=== PATIENT | female | born 1945 | race Caucasian/White ===

== ENCOUNTER 2023-03-21 12:05 | Emergency (ER) | payer MEDICARE, SELFPAY ==
[2023-03-21 12:16] VITALS: BP 107/74; PULSE 73; RESP 20; TEMP 36.8; O2SAT 97; BMI 29.5
[2023-03-21 12:44] VITALS: O2SAT 96
--- NOTE | 2023-03-21 13:06 | ED.GENADUL1 ---
HPI - General Adult General Chief complaint: Epistaxis Stated complaint: BLOODY NOSE WON'T STOP/SINUS HEADACHE Time Seen by Provider: 03/21/23 12:59 Source: patient Mode of arrival: walk-in Limitations: no limitations History of Present Illness HPI narrative: patient presents with sinus pressure and drainage with increased frequency of blowing her nose. She initially told us that she has been having intermittent nosebleeds that resolve quickly - they usually start after she has blown her nose. She said that the nosebleeds have been happening intermittently for months but that the sinus pressure began last week. She has not seen any local ENT physicians. Related Data Home Medications Medication Instructions Recorded Confirmed albuterol sulfate 90 mcg/actuation 1 inh inhalation Q4H PRN shortness 03/21/23 03/21/23 aerosol inhaler of breath or wheezing aspirin 81 mg tablet,delayed 81 mg PO DAILY 03/21/23 03/21/23 release (Adult Low Dose Aspirin) citalopram 10 mg tablet 10 mg PO DAILY 03/21/23 03/21/23 cyclosporine 0.05 % eye drops in a 1 drp ophthalmic (eye) BID 03/21/23 03/21/23 dropperette (Restasis) omeprazole 20 mg capsule,delayed 20 mg PO .every other day 03/21/23 03/21/23 release simvastatin 5 mg tablet 5 mg PO DAILY 03/21/23 03/21/23 Previous Rx's Medication Instructions Recorded amoxicillin 875 mg-potassium 1 tab PO BID #14 tabs 03/21/23 clavulanate 125 mg tablet Allergies Allergy/AdvReac Type Severity Reaction Status Date / Time ibuprofen [From Motrin] Allergy Severe tongue Verified 03/21/23 12:16 swelling PFSH PFSH Social History Smoking status: Never smoker Exam Narrative Exam Narrative: Nurses notes and vital signs reviewed and patient is not hypoxic. afebrile General: Well-appearing and in no apparent distress. Skin: Warm, dry, no pallor noted. No rash. Head: Normocephalic, atraumatic. Neck: Supple, non-tender. no cervical lymphadenopathy Eye: Pupils are equal, round and EOMI. No scleral icterus. Ears, Nose, Mouth, and Throat: TM are clear, mild left nasal mucosal hypertrophy. No active nasal bleeding found. Oral mucosa is moist, no posterior oropharynx erythema, uvula is mid-line Cardiovascular: Regular Rate and Rhythm without murmur, gallop or rub. Respiratory: No accessory muscle use or respiratory distress. Lungs are clear to auscultation, no wheezing, rales or rhonchi Musculoskeletal: normal ROM Neurological: A&O x4. No cranial nerve dysfunction observed. No truncal ataxia. Moves all extremities. Sensation intact. Psychiatric: Cooperative and interactive. Normal mood and affect. Constitutional Vital Signs - 24 hr 03/21/23 12:16 03/21/23 12:44 Temperature 98.3 F Pulse Rate [Monitor] 73 Respiratory Rate 20 Blood Pressure [Left Arm] 107/74 Pulse Oximetry 97 96 Oxygen Delivery Method Room Air Room Air Course Vital Signs Vital signs: Vital Signs Temperature 98.3 F 03/21/23 12:16 Pulse Rate 73 03/21/23 12:16 Respiratory Rate 20 03/21/23 12:16 Blood Pressure 107/74 03/21/23 12:16 Pulse Oximetry 97 03/21/23 12:16 Oxygen Delivery Method Room Air 03/21/23 12:16 Temperature 98.3 F 03/21/23 12:16 Pulse Rate 73 03/21/23 12:16 Respiratory Rate 20 03/21/23 12:16 Blood Pressure 107/74 03/21/23 12:16 Pulse Oximetry 96 03/21/23 12:44 Oxygen Delivery Method Room Air 03/21/23 12:44 Medical Decision Making MDM Narrative Medical decision making narrative: Patient does not have any active bleeding. I gave her some vaseline A&D ointment to apply to the nasal septum bilaterally. The patient's symptoms and exam findings suggest sinusitis, so she was prescribed augmentin for home use. She was also given referral information for Dr Mcduffie. Discharge Plan Discharge Chief Complaint: Epistaxis Clinical Impression: Epistaxis, Sinusitis Patient Disposition: Home, Self-Care Time of Disposition Decision: 13:04 Prescriptions / Home Meds: New amoxicillin-pot clavulanate 875-125 mg tablet 1 tab PO BID Qty: 14 0RF No Action albuterol sulfate 90 mcg/actuation HFA aerosol inhaler 1 inh INHALATION Q4H PRN (Reason: shortness of breath or wheezing) citalopram 10 mg tablet 10 mg PO DAILY omeprazole 20 mg capsule,delayed release(DR/EC) 20 mg PO .every other day simvastatin 5 mg tablet 5 mg PO DAILY cyclosporine [Restasis] 0.05 % dropperette 1 drp OPHTHALMIC (EYE) BID aspirin [Adult Low Dose Aspirin] 81 mg tablet,delayed release (DR/EC) 81 mg PO DAILY Instructions: Sinusitis (ED), Nosebleed (ED) Stand Alone Forms: Portal Instructions Referrals: Ayana Mcduffie MD [Physician] - 1 week
== END 2023-03-21 13:14 | disposition home or self-care (01) ==
PROVIDERS: Emergency Provider Emergency Medicine
DX: R04.0 Epistaxis (principal); J32.9 Chronic sinusitis, unspecified; Z79.82 Long term (current) use of aspirin; Z79.899 Other long term (current) drug therapy
CPT/HCPCS: 82805; 99281

== ENCOUNTER 2024-12-11 10:28 | Outpatient (RCR) | payer MEDICARE, SELFPAY | END 2025-01-08 07:22 | disposition home or self-care (01) | LOC: PT 10:28 | PROVIDERS: Visit Provider Orthopaedic Surgery | DX: M19.012 Primary osteoarthritis, left shoulder (principal); M75.102 Unspecified rotator cuff tear or rupture of left shoulder, not specified as traumatic; M70.61 Trochanteric bursitis, right hip | CPT/HCPCS: 97110; 97112; 97140; 97163 ==